=== PATIENT | female | born 1985 | race Caucasian/White ===

== ENCOUNTER 2017-03-22 12:40 | Emergency (ER) | payer OTHER ==
--- NOTE | ~2017-03-22 | CR133 ---
[facility]. [facility] A Service of [facility] & [facility] RADIOLOGY TEXT RESULTS PATIENT: NHAN MORATAYA LOCATION: SED : 85 UNIT #: [id number] AGE: [address]: Susi Munoz APRN SEX: F ORDER DR: [id number] [address] [address] [id number] E MR#: [id number] Acc #: [id number] NAME: NHAN MORATAYA : 1985 SEX: F STUDY DATE/TIME: 03/22/2017 12:46 UNIT: SED ROOM: STUDY DESCRIPTION: CR Forearm 2 View Rt Attending Physician: uSsi Munoz A.P.R.N. Ordering Physician: Susi Minaya A.P.R.N. Primary Care Physician: No Primary Care Physician MEDICAL IMAGING REPORT This report is preliminary unless electronic signature is present. EXAM Right forearm 3 views HISTORY 3 days ago needle broken off under skin. FINDINGS There is a small caliber needle in the ventral soft tissues of the forearm, about 8 mm in length, probably 1.5 to 2 cm below this surface of the skin. Dictated by... Regino Torres M.D. THIS IS AN ELECTRONICALLY VERIFIED REPORT Regino Torres M.D. at 03/23/2017 9:41 AM SILVER/torsten TD: 03/22/2017 14:25 JOB #: [id number] MEDICAL IMAGING REPORT Page 1 of 1
[~2017-03-22 12:40] MED LIST: AMOXICILLIN PO; AMOXICILLIN500 M1; AMOXICILLIN500 M1 PO; ANAPROX DS550 M1 PO; BENTYL10 M1 PO; BENTYL20 M1 PO; COLACE PO; DESYREL50 MG; FLAGYL PO; IBUPROFEN800 MG PO; KCL PO; MOTRIN600 MG PO; NAPROSYN500 MG PO; NO MEDICATIONS; PEN-VEE K PO; PHENERGAN PO; PREDNISONE PO; SEROQUEL XR200 MG; VICODIN 5/500 T1 TAB PO; VOLTAREN75 MG PO; ZOFRAN ODT4 MG PO; ZOLOFT100 MG
[2017-06-02] MEDS ORDERED: DESYREL100 MG PO (14:41)
[2017-06-02] MEDS ORDERED: ZOLOFT100 MG PO (14:41)
[2017-06-02] MEDS ORDERED: [UNRECOGNIZED DRUG - OTHER] INJ (21:31)
[2017-06-02] MEDS ORDERED: SEROQUEL XR200 MG PO (21:31)
== END 2017-03-22 13:41 | disposition home or self-care (01) ==
LOC: SED 12:40
DX: S51.841A Puncture wound with foreign body of right forearm, initial encounter (principal); J45.909 Unspecified asthma, uncomplicated; F32.9 Major depressive disorder, single episode, unspecified; F41.9 Anxiety disorder, unspecified; F17.210 Nicotine dependence, cigarettes, uncomplicated; W26.8XXA Contact with other sharp object(s), not elsewhere classified, initial encounter; Y92.9 Unspecified place or not applicable
CPT/HCPCS: 73090; 99283

== ENCOUNTER 2017-04-16 21:25 | Emergency (ER) | payer OTHER ==
[2017-04-16 21:57] LABS: URINE SOURCE CLEAN CATCH
[2017-04-16 21:59] LABS: URINE APPEARANCE CLOUDY; URINE BILIRUBIN NEG (NEG); URINE BLOOD 3+ (NEG); URINE COLOR YELLOW; URINE GLUCOSE NEG (NORM); URINE KETONE NEG (NEG); URINE LEUKOCYTE ESTERASE 2+ (NEG); URINE NITRATE NEG (NEG); URINE PROTEIN 2+ (NEG); URINE SPECIFIC GRAVITY >=1.030 (1.003-1.035)
[2017-04-16 22:00] LABS: MICRO INDICATED? YES
[2017-04-16 22:01] LABS: CULTURE INDICATED? YES; URINE BACTERIA 1+ (NEG); URINE SQUAMOUS EPITHELIAL CELL FEW /[HPF]; URINE WBC 25-50 /[HPF] (0-5)
[2017-04-19 19:03] LABS: CHLAMYDIA TRACH Not Detected (Not Detected); N GONOR Not Detected (Not Detected)
[2017-06-02] MEDS ORDERED: ZOLOFT100 MG PO (14:41)
[2017-06-02] MEDS ORDERED: DESYREL100 MG PO (14:41)
[2017-06-02] MEDS ORDERED: [UNRECOGNIZED DRUG - OTHER] INJ (21:31)
[2017-06-02] MEDS ORDERED: SEROQUEL XR200 MG PO (21:31)
== END 2017-04-16 22:29 | disposition home or self-care (01) ==
LOC: SED 21:25
PROVIDERS: Emergency Medicine
DX: N39.0 Urinary tract infection, site not specified (principal); N76.0 Acute vaginitis; B96.89 Other specified bacterial agents as the cause of diseases classified elsewhere; F17.200 Nicotine dependence, unspecified, uncomplicated; J45.909 Unspecified asthma, uncomplicated; F41.9 Anxiety disorder, unspecified; F32.9 Major depressive disorder, single episode, unspecified; Z98.51 Tubal ligation status
CPT/HCPCS: 81003; 84703; 87086; 87088; 87186; 87491; 87591; 87808; 87905; 99284

== ENCOUNTER → 2017-04-27 | Outpatient (CLI) | payer OTHER ==
[~2017-04-27] MED LIST changes: +DESYREL100 MG PO; +SEROQUEL XR200 MG PO; +ZOLOFT100 MG PO; +[UNRECOGNIZED DRUG - OTHER] INJ
[2017-04-27 15:32] LABS: URINE APPEARANCE CLEAR; URINE BILIRUBIN NEG (NEG); URINE BLOOD NEG (NEG); URINE COLOR YELLOW; URINE GLUCOSE NEG (NEG); URINE KETONE NEG (NEG); URINE LEUKOCYTE ESTERASE 2+ (NEG); URINE NITRATE NEG (NEG); URINE PROTEIN NEG (NEG); URINE SPECIFIC GRAVITY 1.012 (1.003-1.035); URINE UROBILINOGEN 0.2 MG/DL (NEG)
[2017-04-27 15:35] LABS: URBCS1 AUWI 0-2 /[HPF] (0-2); URINE BACTERIA AUWI NEG (NEGATIVE); URINE SQUAMOUS EPITHELIAL CELL OCC /[HPF]
[2017-04-27 15:38] LABS: URINE SOURCE CLEAN CATCH
[2017-04-27 15:58] LABS: ALBUMIN SERUM 3.9 g/dL (3.5-5.0); BILIRUBIN,TOTAL 0.8 mg/dL (0.2-2.0); BUN/CREATININE RATIO 13.75; CALCIUM SERUM 9.5 mg/dL (8.4-10.2); CREATININE SERUM 0.8 mg/dL (0.6-1.4); GLOM FILT RATE Estimated 98.3 mL/min (>60); POTASSIUM 4.3 mmol/L (3.5-5.1); PROTEIN TOTAL SERUM 7.4 g/dL (6.0-8.3)
== END | disposition home or self-care (01) ==
LOC: CAMB 14:00
PROVIDERS: Specialist
DX: Z01.812 Encounter for preprocedural laboratory examination (principal); T14.8 Other injury of unspecified body region
CPT/HCPCS: 36415; 80053; 81003

== ENCOUNTER → 2017-05-27 | Outpatient (CLI) | payer OTHER ==
[2017-05-27 15:38] LABS: URINE APPEARANCE CLEAR; URINE BILIRUBIN NEG (NEG); URINE BLOOD NEG (NEG); URINE COLOR YELLOW; URINE GLUCOSE NEG (NEG); URINE KETONE NEG (NEG); URINE LEUKOCYTE ESTERASE NEG (NEG); URINE NITRATE NEG (NEG); URINE PH 5.5 (5-8); URINE PROTEIN NEG (NEG); URINE SPECIFIC GRAVITY 1.025 (1.003-1.035)
[2017-05-27 15:43] LABS: URINE SOURCE CLEAN CATCH
[2017-05-27 16:09] LABS: ALBUMIN SERUM 3.9 g/dL (3.5-5.0); BILIRUBIN,TOTAL 0.5 mg/dL (0.2-2.0); CALCIUM SERUM 9.6 mg/dL (8.4-10.2); CREATININE SERUM 0.8 mg/dL (0.6-1.4); GLOM FILT RATE Estimated 98.3 mL/min (>60); POTASSIUM 4.5 mmol/L (3.5-5.1); PROTEIN TOTAL SERUM 7.5 g/dL (6.0-8.3)
== END | disposition home or self-care (01) ==
LOC: CAMB 05-26 14:00
PROVIDERS: Specialist
DX: Z01.812 Encounter for preprocedural laboratory examination (principal)
CPT/HCPCS: 36415; 80053; 81003

== ENCOUNTER → 2017-06-02 | Day surgery (SDC) | payer OTHER ==
--- NOTE | ~2017-06-02 | CR88 ---
[facility] A Service of [facility] & [facility] RADIOLOGY TEXT RESULTS PATIENT: NHAN MORATAYA LOCATION: [facility] : [birth year] UNIT #: [id number] AGE: [address]: Alex Willard MD SEX: F ORDER DR: [id number] [facility] [address] [place], [place] [address] [id number] O MR#: [id number] Acc #: [id number] NAME: NHAN MORATAYA : 1985 SEX: F STUDY DATE/TIME: 06/02/2017 8:06 UNIT: [facility] ROOM: STUDY DESCRIPTION: CR Elbow 1 View Rt Attending Physician: Alex Willard M.D. Ordering Physician: Alex Willard M.D. Primary Care Physician: Ulises Blackwood M.D. MEDICAL IMAGING REPORT This report is preliminary unless electronic signature is present EXAM Right elbow 1 view HISTORY Elbow foreign body removal. FINDINGS AP intraoperative fluoroscopic spot film of the right elbow demonstrates surgical clip and opaque disc overlying the distal humerus. Partly visualized bone alignment is satisfactory. Limited evaluation of bone detail. No metal needle fragment is identified. Dictated by... Cory Linares M.D. THIS IS AN ELECTRONICALLY VERIFIED REPORT Cory Linares M.D. at 06/03/2017 11:19 PM DFL/xu TD: 06/02/2017 20:23 JOB #: [id number] MEDICAL IMAGING REPORT Page 1 of 1 COPY
--- NOTE | ~2017-06-02 | OR ---
Unit #: [id number] #: [id number] Patient: NHAN MORATAYA [id number] [facility] [address]. [place], [place] [address] [id number] O MR#: [id number] NAME: NHAN MORATAYA ROOM: Date of Procedure: 06/02/2017 Admission Date: 06/02/2017 Surgeon: Alex Willard M.D. : 1985 Attending Physician: Alex Willard M.D. Primary Care Physician: Ulises Blackwood M.D. OPERATIVE REPORT PREOPERATIVE DIAGNOSIS Foreign body, right upper extremity. POSTOPERATIVE DIAGNOSIS Foreign body, right upper extremity. PROCEDURE PERFORMED Right upper extremity exploration under fluoroscopy with removal of foreign body. ANESTHESIA General endotracheal anesthesia. ESTIMATED BLOOD LOSS 10 mL. INDICATIONS FOR PROCEDURE Ms. Morataya is a 31-year-old female, who is an IV drug abuser, who presented to the emergency room with pain, erythema and swelling over the right antecubital fossa at an injection site. During the course of her evaluation in the ER, plain films were taken and it appears that still there was an 8 mm portion of needle broken off in the arm. She was treated for the localized infection in the ER and sent to my office. By the time she came to the office, the erythema had receded, but she still is complaining of pain and had induration. We planned on doing a foreign body extraction under fluoroscopy. DESCRIPTION OF PROCEDURE The patient was admitted to [facility], positively identified, and transported to the operating room, and after appropriate monitoring and positioning, she had an LMA placed by Anesthesia and was put to sleep. Fluoroscopy was used to localize the approximate site of the metallic foreign body and then, the arm was prepped and draped in usual sterile fashion. A vertical incision was made over the proposed site of the foreign body and using fluoroscopy by dissecting the soft tissue, the needle was found, removed and sent to the laboratory. Followup x-ray after removal confirmed that all the metallic fragments had been removed. I irrigated and ensured hemostasis. The skin was then closed with 3-0 nylon vertical mattress suture. Neosporin and bandage were placed. Sponges and needle counts were correct x3. The patient tolerated the procedure well and was transferred to the recovery room in stable condition. Postoperative instructions for wound care were given to Unit #: [id number] #: [id number] Patient: NHAN MORATAYA her family. Dictated by... Jena Britt/hernán TD: 06/02/2017 08:52 JOB #: [id number] OPERATIVE REPORT Page 1 of 1 X Alex Willard MD PROCEDURE OPERATIVE NOTE
== END | disposition home or self-care (01) ==
LOC: CSUR 05:24
DX: S51.041A Puncture wound with foreign body of right elbow, initial encounter (principal); J45.909 Unspecified asthma, uncomplicated; F17.210 Nicotine dependence, cigarettes, uncomplicated; F41.9 Anxiety disorder, unspecified; F31.9 Bipolar disorder, unspecified; Z87.440 Personal history of urinary (tract) infections; Z82.49 Family history of ischemic heart disease and other diseases of the circulatory system; Z77.22 Contact with and (suspected) exposure to environmental tobacco smoke (acute) (chronic); Z98.51 Tubal ligation status; Z98.890 Other specified postprocedural states; Z88.8 Allergy status to other drugs, medicaments and biological substances; Z79.899 Other long term (current) drug therapy; W46.0XXA Contact with hypodermic needle, initial encounter
CPT/HCPCS: 73070; 76000; 84703; 88300; J1885; J2250; J2405

== ENCOUNTER 2017-06-09 14:45 | Emergency (ER) | payer OTHER ==
[2017-06-09 15:17] LABS: URINE SOURCE CLEAN CATCH
[2017-06-09 15:19] LABS: URINE APPEARANCE SL CLOUDY; URINE BLOOD TRACE-INTACT (NEG); URINE COLOR YELLOW; URINE GLUCOSE NEG (NORM); URINE KETONE TRACE (NEG); URINE LEUKOCYTE ESTERASE NEG (NEG); URINE NITRATE NEG (NEG); URINE PROTEIN NEG (NEG); URINE SPECIFIC GRAVITY 1.025 (1.003-1.035)
[2017-06-09 15:23] LABS: MICRO INDICATED? YES; URINE BILIRUBIN NEG (NEG)
[2017-06-09 15:30] LABS: URINE RBC 0-2 /[HPF] (0-2)
[2017-06-09 15:31] LABS: URINE BACTERIA 1+ (NEG); URINE SQUAMOUS EPITHELIAL CELL MANY /[HPF]
== END 2017-06-09 15:49 | disposition home or self-care (01) ==
LOC: SED 14:45
PROVIDERS: Emergency Medicine
DX: R11.2 Nausea with vomiting, unspecified (principal); R19.7 Diarrhea, unspecified; F41.9 Anxiety disorder, unspecified; F32.9 Major depressive disorder, single episode, unspecified; F17.210 Nicotine dependence, cigarettes, uncomplicated
CPT/HCPCS: 81003; 84703; 99284

== ENCOUNTER 2017-06-15 20:14 | Emergency (ER) | payer OTHER | END 2017-06-15 22:20 | disposition home or self-care (01) | LOC: CED 20:14 → CFTX 20:14 | DX: Z48.00 Encounter for change or removal of nonsurgical wound dressing (principal); F41.9 Anxiety disorder, unspecified; F32.9 Major depressive disorder, single episode, unspecified; F17.210 Nicotine dependence, cigarettes, uncomplicated | CPT/HCPCS: 99282 ==